=== PATIENT | female | born 1945 | race Caucasian/White ===

== ENCOUNTER 2016-09-17 09:29 | Day surgery (SDC) | payer OTHER ==
[~2016-09-17] VITALS: Ht 157.5 cm; Wt 73.4 kg
[~2016-09-17 09:29] MED LIST: LO-DOSE ASPIRIN81 M2 PO; LOPRESSOR25 MG PO; PROBIOTIC250 MG PO; ZYRTEC10 M3 PO
[2016-09-17 09:59] VITALS: BP 131/60
[2016-09-17 14:51] VITALS: BP 134/62
[2016-09-17] MEDS ORDERED: PERCOCET 5/31 TABLET PO (15:09)
[2016-09-17 15:49] VITALS: BP 119/63
[2016-09-17 17:11] VITALS: BP 153/72
== END 2016-09-17 17:27 | disposition home or self-care (01) ==
LOC: SDC 09:29
PROC: 0WUF4JZ Supplement Abdominal Wall with Synthetic Substitute, Percutaneous Endoscopic Approach (ICD-10-PCS; principal; 2016-09-17)
DX: K43.0 Incisional hernia with obstruction, without gangrene (principal); I49.9 Cardiac arrhythmia, unspecified; Z85.3 Personal history of malignant neoplasm of breast; Z79.82 Long term (current) use of aspirin; Z68.30 Body mass index [BMI] 30.0-30.9, adult; Z80.3 Family history of malignant neoplasm of breast; Z82.49 Family history of ischemic heart disease and other diseases of the circulatory system; Z82.0 Family history of epilepsy and other diseases of the nervous system; Z88.8 Allergy status to other drugs, medicaments and biological substances; Z88.5 Allergy status to narcotic agent
CPT/HCPCS: C1781; J0690; J1100; J1170; J2405; J3010

== ENCOUNTER 2017-03-10 09:12 | Day surgery (SDC) | payer OTHER ==
[~2017-03-10] VITALS: Ht 158.8 cm; Wt 72.6 kg
[~2017-03-10 09:12] MED LIST changes: +DIGOXIN250 MCG PO; +ELIQUIS5 MG PO; +HAWTHORN500 MG PO; +LASIX40 MG PO; +MAGNESIUM250 MG PO; +MULTIMINERALS PO; +MULTIVITAMIN1 EAC2 PO; +PERCOCET 5/31 TABLET PO; +POTASSIUM-9999 MG PO; +VITAMIN D31000 UNI2 PO
[2017-03-10 12:30] LABS: BASOPHIL COUNT 0.1 K/uL (0-0.1); EOSINOPHIL (%) 3.3 % (0-5); EOSINOPHIL COUNT 0.2 K/uL (0-0.3); HEMATOCRIT 35.9 % (36.0-46.0); IMMATURE GRANULOCYTE (%) 0.7 % (0.0-0.7); IMMATURE GRANULOCYTE COUNT 0.1 K/uL; INSTRUMENT ABS NEUTROPHIL CT 4.8 K/uL; LYMPHOCYTE COUNT 1.3 K/uL (1.0-2.8); MCH 31.4 PG (29.0-34.0); MCHC 33.4 G/DL (30.0-36.0); MEAN PLAT.VOLUME 10.1 uM^3 (9.5-12.4); MONOCYTE (%) 9.3 % (3-12); MONOCYTE COUNT 0.7 K/uL (0-0.8); NEUTROPHIL (%) 67.9 % (45-76); NEUTROPHIL COUNT 4.8 K/uL (1.8-6.4); PLATELET COUNT 205 K/uL (156-360); RBC DIS.WIDTH-CV 12.4 % (11.8-14.6); RBC DIS.WIDTH-SD 42.6 % (39-53); RED BLOOD COUNT 3.82 M/uL (3.80-5.20); WHITE BLOOD COUNT 7.1 K/uL (4.1-10.2)
[2017-03-10 13:08] LABS: ANION GAP 11 MEQ/L (2-14); CHLORIDE 104 MEQ/L (99-109); GFR ESTIMATE (CALCULATED) > 59 mL/min/; GLUCOSE 108 mg/dL (70-99); POTASSIUM 3.8 MEQ/L (3.7-5.4); SAMPLE HEMOLYSIS CHECK 0; SAMPLE ICTERIC CHECK 0; SAMPLE LIPEMIA CHECK 0; SODIUM 141 MEQ/L (136-147); UREA NITROGEN (BUN) 19 mg/dL (9-23)
== END 2017-03-10 18:53 | disposition home or self-care (01) ==
LOC: CATH 09:12 → OPR 03-12 13:00
PROVIDERS: Internal Medicine Cardiovascular Disease
DX: I34.0 Nonrheumatic mitral (valve) insufficiency (principal); I48.2 Chronic atrial fibrillation; I48.1 Persistent atrial fibrillation; Z79.82 Long term (current) use of aspirin; Z79.01 Long term (current) use of anticoagulants
CPT/HCPCS: 80048; 85025; C1769; C1887; J1644; J2250; J3010

== ENCOUNTER → 2017-08-23 | Outpatient (CLI) | payer OTHER ==
[~2017-08-23] VITALS: Ht 157.5 cm; Wt 68.0 kg
[~2017-08-23] MED LIST changes: +POTASSIUM GLUCO2 MEQ PO; -POTASSIUM-9999 MG PO; +PROAIR HFA8.5 GM IH; +PROBIOTIC1 EAC3 PO; -PROBIOTIC250 MG PO; +SINGULAIR10 MG PO; +SPIRIVA RESPIMAT4 GM IH
== END | disposition home or self-care (01) ==
LOC: AMB 09:30
PROC: B24BZZ4 Ultrasonography of Heart with Aorta, Transesophageal (ICD-10-PCS; principal; 2017-08-23)
DX: I34.0 Nonrheumatic mitral (valve) insufficiency (principal); I27.20 Pulmonary hypertension, unspecified; I48.1 Persistent atrial fibrillation; I44.7 Left bundle-branch block, unspecified; J44.9 Chronic obstructive pulmonary disease, unspecified; I50.9 Heart failure, unspecified; Z85.3 Personal history of malignant neoplasm of breast; Z79.01 Long term (current) use of anticoagulants
CPT/HCPCS: 93312

== ENCOUNTER 2017-10-25 20:34 | Inpatient (IN) | payer OTHER ==
[~2017-10-25] VITALS: Ht 157.5 cm; Wt 72.0 kg
[~2017-10-25 20:34] MED LIST changes: +FLORASTOR250 MG PO; -LOPRESSOR25 MG PO; +METOPROLOL SUCC50 MG PO; -PROBIOTIC1 EAC3 PO
[2017-10-25 21:07] LABS: HEMATOCRIT 36.4 % (36.0-46.0); HEMOGLOBIN 12.6 G/DL (11.9-15.5); MCH 32.1 PG (29.0-34.0); MCHC 34.6 G/DL (30.0-36.0); MCV 92.9 FL (83-99); PLATELET COUNT 179 K/uL (156-360); RBC DIS.WIDTH-CV 12.3 % (11.8-14.6); RBC DIS.WIDTH-SD 41.7 % (39-53); RED BLOOD COUNT 3.92 M/uL (3.80-5.20); WHITE BLOOD COUNT 7.7 K/uL (4.1-10.2)
[2017-10-25 21:25] LABS: CHLORIDE 100 mEq/L (99-109); POTASSIUM 3.9 mEq/L (3.7-5.4); SODIUM 137 mEq/L (136-147)
[2017-10-25 21:26] LABS: GLUCOSE 116 mg/dL (70-99)
[2017-10-25 21:30] LABS: CREATININE 0.9 mg/dL (0.6-1.3); GFR ESTIMATE (CALCULATED) > 59 mL/min/
[2017-10-25 21:31] LABS: UREA NITROGEN (BUN) 29 mg/dL (9-23)
[2017-10-25 21:35] LABS: TROP-I INTERPRETATION NEGATIVE; TROPONIN-I 0.04 ng/mL (0.0-0.30)
[2017-10-25] MEDS ORDERED: B-COMPLEX-VITA1 EACH PO (22:09)
[2017-10-25] MEDS ORDERED: ELIQUIS5 MG PO (22:11)
[2017-10-25] MEDS ORDERED: MAG-OXIDE400 MG PO (22:13)
[2017-10-25] MEDS ORDERED: MULTI-DAY PLUS1 EAC1 PO (22:25)
[2017-10-25 22:33] LABS: DIGOXIN 1.2 ng/mL (0.8-2.0)
[2017-10-26] VITALS (7 sets, daily range): BP systolic 100–138; BP diastolic 50–64
[2017-10-26 03:44] LABS: HEMATOCRIT 33.8 % (36.0-46.0); HEMOGLOBIN 11.8 G/DL (11.9-15.5); MCH 32.5 PG (29.0-34.0); MCHC 34.9 G/DL (30.0-36.0); MCV 93.1 FL (83-99); PLATELET COUNT 146 K/uL (156-360); RBC DIS.WIDTH-CV 12.1 % (11.8-14.6); RBC DIS.WIDTH-SD 41.5 % (39-53); RED BLOOD COUNT 3.63 M/uL (3.80-5.20)
[2017-10-26 03:53] LABS: CHLORIDE 101 mEq/L (99-109); POTASSIUM 4.4 mEq/L (3.7-5.4); SODIUM 139 mEq/L (136-147)
[2017-10-26 03:55] LABS: GLUCOSE 114 mg/dL (70-99)
[2017-10-26 03:58] LABS: CREATININE 0.8 mg/dL (0.6-1.3); GFR ESTIMATE (CALCULATED) > 59 mL/min/
[2017-10-26 03:59] LABS: UREA NITROGEN (BUN) 27 mg/dL (9-23)
[2017-10-26 04:07] LABS: TROP-I INTERPRETATION NEGATIVE; TROPONIN-I 0.05 ng/mL (0.0-0.30)
[2017-10-26 07:58] LABS: THYROTROPIN (TSH) 3.7 MIU/L (0.4-5.5)
[2017-10-26 10:37] LABS: TROP-I INTERPRETATION NEGATIVE; TROPONIN-I 0.05 ng/mL (0.0-0.30)
[2017-10-26 10:58] LABS: MAGNESIUM 2.2 mg/dl (1.3-2.7)
[2017-10-27] VITALS (8 sets, daily range): BP systolic 114–135; BP diastolic 55–71
[2017-10-27 06:25] LABS: CHLORIDE 105 MEQ/L (99-109); CREATININE 0.8 MG/DL (0.6-1.3); GFR ESTIMATE (CALCULATED) > 59 mL/min/; GLUCOSE 106 mg/dL (70-99); POTASSIUM 4.2 MEQ/L (3.7-5.4); SODIUM 140 MEQ/L (136-147); UREA NITROGEN (BUN) 29 mg/dL (9-23)
[2017-10-28 03:00] VITALS: BP 116/61
[2017-10-28 08:44] VITALS: BP 138/65
[2017-10-28 12:44] VITALS: BP 117/62
== END 2017-10-28 13:00 | disposition home or self-care (01) | DRG 244 ==
LOC: EME 20:34 → 4EAST 23:35 → EDOF 23:35 → ENRESERV 23:36 → 4EAST 10-26 00:29
PROVIDERS: Hospitalist; Internal Medicine
PROC: 02HK3JZ Insertion of Pacemaker Lead into Right Ventricle, Percutaneous Approach (ICD-10-PCS; principal; 2017-10-27)
PROC: 0JH606Z Insertion of Pacemaker, Dual Chamber into Chest Subcutaneous Tissue and Fascia, Open Approach (ICD-10-PCS; principal; 2017-10-27)
PROC: 02H63JZ Insertion of Pacemaker Lead into Right Atrium, Percutaneous Approach (ICD-10-PCS; principal; 2017-10-27)
DX: I44.2 Atrioventricular block, complete (principal); I48.2 Chronic atrial fibrillation; R55 Syncope and collapse; I34.0 Nonrheumatic mitral (valve) insufficiency; J44.9 Chronic obstructive pulmonary disease, unspecified; Z85.3 Personal history of malignant neoplasm of breast; Z92.3 Personal history of irradiation; Z79.01 Long term (current) use of anticoagulants; Z90.12 Acquired absence of left breast and nipple; Z82.49 Family history of ischemic heart disease and other diseases of the circulatory system; Z82.3 Family history of stroke
CPT/HCPCS: 71045; 80048; 80162; 83735; 84443; 84484; 85027; 93005; 99202; 99281; 99285; C1785; C1892; C1894; C1898; J0690; J1200; J2250; J3010; S0020